=== PATIENT | male | born 1950 | race Caucasian/White ===

== ENCOUNTER → 2019-10-21 08:34 | Outpatient (BNVA) | payer MEDICARE, OTHER, SELFPAY | PROVIDERS: Family Provider Family Medicine; PCP Family Medicine; Visit Provider Urology | DX: N40.1 Benign prostatic hyperplasia with lower urinary tract symptoms (principal); N13.8 Other obstructive and reflux uropathy; R97.20 Elevated prostate specific antigen [PSA]; N52.9 Male erectile dysfunction, unspecified | CPT/HCPCS: 81001; 84153 ==

== ENCOUNTER → 2020-04-21 14:30 | Outpatient (BNVA) | payer MEDICARE, OTHER, SELFPAY | PROVIDERS: Family Provider Family Medicine; PCP Family Medicine; Visit Provider Urology | DX: R97.20 Elevated prostate specific antigen [PSA] (principal); N40.1 Benign prostatic hyperplasia with lower urinary tract symptoms; N13.8 Other obstructive and reflux uropathy | CPT/HCPCS: 81003; 84153 ==

== ENCOUNTER → 2021-01-19 14:25 | Outpatient (BNVA) | payer MEDICARE, OTHER, SELFPAY | PROVIDERS: Family Provider Family Medicine; PCP Family Medicine; Visit Provider Urology | DX: N40.1 Benign prostatic hyperplasia with lower urinary tract symptoms (principal); N13.8 Other obstructive and reflux uropathy; R97.20 Elevated prostate specific antigen [PSA] | CPT/HCPCS: 81003; 84153 ==

== ENCOUNTER 2021-05-31 15:37 | Outpatient (CLI) | payer MEDICARE, OTHER, SELFPAY ==
--- NOTE | 2021-05-31 16:00 | MR_ITS ---
WS: [id number] MRI LUMBAR SPINE NONCONTRAST TECHNIQUE: Sagittal T1, T2 and STIR imaging. Axial T1 and T2 imaging. CLINICAL INFORMATION: NEUROGENIC CLAUDICATION COMPARISON: MRI 9 2014 FINDINGS: Mild lumbar curve. No acute compression. Disc bulging L2-L3 L3-L4 and L4-L5 with endplate degenerativ e changes. Central canal stenosis at these levels is progressed compared to 2014. Degenerative disc d isease has progressed. L1-L2: No significant disc bulging. Mild facet arthropathy. Spinal canal and foramen are patent. L2-L3: Mild disc bulging with moderate central canal stenosis. Impingement on the traversing L3 nerve roots left greater than right. Moderate facet arthropathy and ligamentum flavum hypertrophy. Moderat e left greater than right foraminal narrowing. L3-L4: Mild disc bulging with osteophytic ridging. Moderate central canal stenosis. Crowding of the c auda equina nerve rootlets. Moderate facet arthropathy. Moderate bilateral foraminal narrowing. L4-L5: Mild disc bulging with osteophytic ridging. Moderate central canal stenosis. Moderate facet ar thropathy and ligamentum flavum flavum hypertrophy. Moderate to severe bilateral foraminal narrowing. L5-S1: Mild disc bulging with osteophytic ridging. Spinal canal is patent. Mild bilateral foraminal n arrowing. Moderate facet arthropathy. Partially visualized large bilateral renal cysts measuring up to 6-7 CM. MR/MR lumbar spine wo con* [id number] IMPRESSION: 1. Degenerative disc disease L2-L3 L3-L4 L4-L5 with degenerative endplate-type changes have progressed compared to 2014. 2. Moderate central canal stenosis L2-L3 L3-L4 and L4-L5. Crowding of the caud a equina nerve rootlets worse at L3-L4 and L4-L5. This is progressed compared t o 2014. 3. Multilevel moderate bony foraminal narrowing worse at left L2-3, bilateral L3-4, and bilateral L4-5. Moderate to severe at right L4-5.
== END 2021-05-31 15:38 | disposition home or self-care (01) ==
LOC: RADSHAW 15:47
PROVIDERS: PCP Family Medicine; Visit Provider Physician Assistant
DX: G95.19 Other vascular myelopathies (principal); M51.36 Other intervertebral disc degeneration, lumbar region; M48.061 Spinal stenosis, lumbar region without neurogenic claudication
CPT/HCPCS: 72148

== ENCOUNTER 2022-01-19 12:31 | Outpatient (CLI) | payer MEDICARE, OTHER, SELFPAY | END 2022-01-19 12:32 | disposition home or self-care (01) | LOC: LAB 12:31 | PROVIDERS: PCP Family Medicine; Visit Provider Urology | DX: R97.20 Elevated prostate specific antigen [PSA] (principal); N40.1 Benign prostatic hyperplasia with lower urinary tract symptoms; N13.8 Other obstructive and reflux uropathy | CPT/HCPCS: 36415; 51798; 81003; 84153; 99213 ==

== ENCOUNTER 2023-10-29 08:44 | Outpatient (CLI) | payer MEDICARE, OTHER, SELFPAY ==
[2023-10-29 09:28] VITALS: BMI 33.9
--- NOTE | 2023-10-29 09:32 | NMCV_ITS ---
NM guerrero perf SPECT r/s* [id number] Esequiel Marion Age: 73 Gender: M : 1950 Exam Date: 10/29/2023 09:32 Ordering Phys: Gricelda Mcrae Technologist: CHIDI Padilla Exam Location: [facility] Indications: CHEST PAIN, HYPERTENSION STRESS TEST Please see separate stress test report in [facility] for full findings IMAGE PROTOCOL Rest/Stress 1 Exercise Day Radiopharmaceutical Dose (mCi) Administration Site Administered by Rest: Tc-99m 10.6 IV CHIDI Luis Sestamibi Stress:Tc-99m 32.9 IV CHIDI Luis Sestamibi Rest: 29-Oct-2023 60 Discovery 630 Stress: 29-Oct-2023 30 Discovery 630 Radiopharmaceutical was injected at 85% maximum heart rate. Images obtained in supine and prone position. SPECT RESULTS Technical Quality: Excellent Raw Data Analysis: Normal Image Corrections: No attenuation or motion correction applied Summed Stress Score: 3 Summed Rest Score: 0 Summed Difference Score: 3 PERFUSION FINDINGS A small area of minimal to moderate degree disease of Evy noted in the apical lateral segment and LV apex with some reversibility. FUNCTIONAL RESULTS (calculated via Gated SPECT) Stress Image LV EF (%): 66 Stress EDV (mL):119 TID: 1.15 Stress ESV (mL):41 FUNCTIONAL FINDINGS: Segmental wall motion analysis revealing no gross wall motion abnormalities IMPRESSIONS 1. Small area of reversible defect involving the LV apex and apical lateral segments, suggesting ischemia in the distribution of the left anterior descending artery/circumflex artery. 2. Normal LV ejection fraction of 66%. 3. LV wall motion analysis revealing no gross wall motion abnormalities. 4. Normal LV volume No similar previous studies are available for comparison Dr Migel Ramos MD [facility] (Electronically Signed) Final Date: 29 Oct 2023 12:16 S
--- NOTE | 2023-10-29 09:32 | ECG_ITS ---
[facility] Test Date: 2023-10-29 Pat Name: Esequiel Marion Department: Room: Gender: Male Congressional Assistant: : 1950 Requested By: Gricelda Mccoy Order Number: [id number] Dominique MD: Migel Ramos M.D. Interpretive Statements NAME OF STUDY: LEXISCAN SESTAMIBI STRESS TEST INDICATION: Chest Pain, PROCEDURE: At the baseline, the EKG revealed sinus bradycardia with left axis deviation. Nonspecific T wave changes. The baseline heart was 55 bpm with a blood pressue of 138/81 mm of Hg Lexiscan was infused over a period of 20 seconds. A total of 0.4 milligrams of Lexiscan was infused. The stress phase was continued for a total of 5 minutes. Heart rate at the end of the stress phase was 63 bpm with a blood pressure 125/84 mm of Hg. The EKG at the peak infusion revealed no significant changes. Sestamibi was injected 20 seconds after the Lexiscan infusion. Heart rate at the end of the recovery phase was 63 bpm with a blood pressure of 130/84 mm of Hg. CONCLUSION: 1. No significant EKG changes with the LexiScan infusion 2. No LexiScan induced chest pain or cardiac arrhythmia 3. Normal blood pressure and heart rate response 4. Sestamibi/sestamibi perfusion scan pending; see separate report. Electronically Signed On 11-05-2023 18:13:20 CDT by Migel Ramos M.D. [email or web address]
[2023-10-29] MEDS: regadenoson 0.4 Mg/5 ml Syringe 0.400000000000000022 MG IVP (11:02)
[2023-10-29 11:18] VITALS: BP 125/83; PULSE 63
== END 2023-10-29 08:45 | disposition home or self-care (01) ==
PROVIDERS: PCP Physician Assistant; Visit Provider Physician Assistant
DX: R00.1 Bradycardia, unspecified (principal); I51.89 Other ill-defined heart diseases
CPT/HCPCS: 36415; 78452; 93017; 96374; A9500; J2785

== ENCOUNTER → 2023-12-18 12:41 | Outpatient (BNVA) | payer MEDICARE, OTHER, SELFPAY | PROVIDERS: PCP Physician Assistant; Referring Provider Physician Assistant; Visit Provider Internal Medicine | DX: R07.9 Chest pain, unspecified (principal); R06.02 Shortness of breath; R94.39 Abnormal result of other cardiovascular function study; Z72.9 Problem related to lifestyle, unspecified; R00.1 Bradycardia, unspecified; I44.4 Left anterior fascicular block | CPT/HCPCS: 93005; 99204 ==

== ENCOUNTER 2024-01-07 13:55 | Outpatient (CLI) | payer MEDICARE, SELFPAY ==
--- NOTE | 2024-01-07 14:00 | USCV_ITS ---
Esequiel Marion Age: 73 Gender: M : 1950 Exam Date: 01/07/2024 14:09 Ordering Phys: Keny Velasco M.D ([email or web address]) Technologist: [place] [facility] [place]: sob BP: 110 / 70 HR: 70 Rhythm: Sinus Technical Quality: Adequate MEASUREMENTS (Male / Female) Normal Values 2D ECHO LVOT Diameter 2.2 cm LV Ejection Fraction MOD 4C 57.1 % LV Ejection Fraction MOD 2C 60.0 % LV Ejection Fraction 2C AL 65.0 % LA Diameter 4.6 cm RA Systolic Volume 4C AL 43.0 ml RA Systolic Volume 4C MOD 40.9 ml LA Sys Volume AL 68.1 cm cubed LA Sys Volume Index AL 27.7 cm cubed/m squared Aorta at Sinotubular Diameter 3.1 cm IVC Diameter 1.6 cm M-MODE LA Ao Ratio MM 1.1 AV Cusp Separation MM 2.1 cm DOPPLER AV Peak Velocity 138.0 cm/s AV Area Cont Eq vti 4.3 cm squared AV Area Cont Eq pk 3.0 cm squared MV Peak Velocity 95.0 cm/s MV Area PHT 3.6 cm squared Mitral E to A Ratio 1.0 TR Peak Velocity 259.0 cm/s TR Peak Gradient 26.8 mmHg TV Peak E Velocity 69.0 cm/s Right Atrial Pressure 3.0 mmHg Pulmonary Artery Systolic Pressu 29.8 mmHg PV Peak Velocity 105.5 cm/s FINDINGS Left Ventricle Left ventricle is normal in size. LV systolic function is normal with EF of 55 to 60%. No regional wall motion abnormalities are seen Right Ventricle Normal in size and function Right Atrium Normal in size Left Atrium Normal in size Mitral Valve Structurally normal mitral valve. Mild mitral regurgitation Aortic Valve Structurally normal aortic valve. No significant stenosis. Mild aortic regurgitation. Tricuspid Valve Mild tricuspid regurgitation. Pulmonary artery systolic pressure is normal. Pulmonic Valve Not well-visualized. Pericardium Normal Aorta Ascending aorta is dilated with diameter of 4.12 cm. IVC Appears to be normal CONCLUSIONS LV systolic function is normal with EF 55 to 60%. Mild mitral regurgitation Mild aortic regurgitation Mild tricuspid regurgitation Ascending aorta is dilated with diameter of 4.12 cm No comparison studies are available. Keny Velasco MD (Electronically Signed) Final Date: 16 January 2024 17:53 S
== END 2024-01-07 13:56 | disposition home or self-care (01) ==
LOC: RAD 13:55
PROVIDERS: PCP Physician Assistant; Visit Provider Internal Medicine
DX: I08.3 Combined rheumatic disorders of mitral, aortic and tricuspid valves (principal); R06.02 Shortness of breath
CPT/HCPCS: 93306

== ENCOUNTER 2024-01-22 14:49 | Outpatient (CLI) | payer MEDICARE, SELFPAY ==
[2024-01-22 15:34] LABS: Anion Gap 14.9 (5-19); Blood Urea Nitrogen 20 mg/dL (8-23); Calcium 9.5 mg/dL (8.5-10.5); Carbon Dioxide 26 mmol/L (22-29); Chloride 101 mmol/L (98-107); Glucose 104 mg/dL (65-115); Osmolality Calculated 289 mOsm/kg (285-295); Potassium 3.9 mmol/L (3.5-5.1); Sodium 138 mmol/L (136-145)
== END 2024-01-22 14:50 | disposition home or self-care (01) ==
LOC: LAB 14:53
PROVIDERS: PCP Physician Assistant; Visit Provider Internal Medicine
DX: R06.02 Shortness of breath (principal)
CPT/HCPCS: 36415; 80048

== ENCOUNTER 2024-01-29 12:14 | Outpatient (CLI) | payer MEDICARE, OTHER, SELFPAY ==
--- NOTE | 2024-01-29 12:30 | CT_ITS ---
WS: [id number] CTA THORACIC AORTA WITH AND WITHOUT HISTORY: Ascending aorta is dilated TECHNIQUE: CT imaging of the thorax is performed with and without contrast. After noncontrast imaging is performed, CT angiogram is performed during injection of Omnipaque 350; 100 mL IV.. Sagittal and coronal reconstructions, sagittal and coronal MIP imaging is submitted. All CT scans at [facility] use at least one of these dose optimization techniques: automated exposure control; mA and/or k V adjustment per patient size (includes targeted exams where dose is matched to clinical indication); or iterative reconstruction. DLP: 887.98 mGy.cm COMPARISON: None available. Mild atherosclerotic plaque throughout the thoracic aorta. Normal sinus of Valsalva measuring 4.3 cm. Sinotubular junction 3.3 cm with normal configuration. Maximum diameter of the ascending aorta is 4. 4 x 4.3 cm. Descending aorta normal caliber at 3.2 cm near the janina. There is no dissection. No ulc erated plaque. Aorta is mildly tortuous. Pulmonary artery is normal size. Calcified granuloma 10 mm R IGHT upper lobe. No additional pulmonary mass. Mild LEFT atrial enlargement. No pericardial or pleural effusion. No RIGHT heart strain. There are no filling defects in the LEFT atrial appendage. There are small mediastinal and hilar lymph nodes whic h are not enlarged. Great vessels arise normally from the aortic arch. Proximal subclavian arteries a re normal. Chest wall is negative. Scattered hepatic cysts with the largest measuring 1.6 cm in the LEFT lobe. T here is tricuspid regurgitation into the hepatic veins. Small hiatal hernia. No adrenal mass. The ent sylvester adrenal glands are not included. Mild anterior wedging of midthoracic vertebral bodies., Probably T6 and T4. CT/CT angio chest 10096 IMPRESSION: 1. Mild aneurysmal dilatation ascending aorta, 4.4 x 4.3 cm. 2. Mild atherosclerotic plaque within the thoracic aorta but no dissection. 3. Mild LEFT atrial enlargement. 4. Tricuspid regurgitation into the hepatic veins. 5. Hepatic cysts. 6. Mild LEFT atrial enlargement.
[2024-01-29] MEDS: iohexol 350 mg/mL 500 mL Btl (per mL) IV (12:52)
== END 2024-01-29 12:15 | disposition home or self-care (01) ==
LOC: RAD 12:16
PROVIDERS: PCP Physician Assistant; Visit Provider Internal Medicine
DX: I77.810 Thoracic aortic ectasia (principal); I70.0 Atherosclerosis of aorta; I07.1 Rheumatic tricuspid insufficiency; K76.89 Other specified diseases of liver
CPT/HCPCS: 71275; Q9967

== ENCOUNTER → 2024-03-18 12:30 | Outpatient (BNVA) | payer MEDICARE, OTHER, SELFPAY | PROVIDERS: PCP Physician Assistant; Visit Provider Internal Medicine | DX: I71.20 Thoracic aortic aneurysm, without rupture, unspecified (principal); R94.39 Abnormal result of other cardiovascular function study; R06.02 Shortness of breath; F17.220 Nicotine dependence, chewing tobacco, uncomplicated | CPT/HCPCS: 99214 ==

== ENCOUNTER 2024-08-04 09:23 | Outpatient (CLI) | payer MEDICARE, OTHER, SELFPAY ==
--- NOTE | 2024-08-04 09:30 | CT_ITS ---
WS: [id number] CTA THORACIC TECHNIQUE: Contrast enhanced CTA of the thoracic aorta with coronal and sagittal reformatted images and maximum intensity projection (MIP) images. CLINICAL INFORMATION: Thoracic aneurysm COMPARISON: 01/29/2024 DLP: 930.[address] scans at [facility] use at least one of these dose optimization techniques: automated exposure control; mA and/or kV adjustment per patient size (includes targeted exams where dose is matched to clinical indication); or iterative reconstruction. FINDINGS: Stable mild aneurysmal dilatation ascending thoracic aorta measuring 4.4 x 4.2 cm. Mild aortic calcification. Normal caliber descending thoracic aorta. Proximal pulmonary arteries are normal. Stable calcified granuloma RIGHT upper lobe. Cardiomegaly. Enlargement LEFT atrium. No mediastinal or hilar lymphadenopathy. Few incidental hepatic cysts the largest measuring 1.5 cm LEFT hepatic lobe. Small esophageal hiatal hernia. Chronic anterior wedging midthoracic spine. Proximal subclavian arteries are normal. Partially visualized large RIGHT renal cyst. CT/CT angio chest 30133 IMPRESSION: 1. Stable mild aneurysmal dilatation ascending thoracic aorta measuring 4.4 x 4.2 cm in maximum dimension. 2. Stable mild LEFT atrial enlargement. 3. Mild aortic calcification. 4. Partially visualized large RIGHT renal cyst appears similar to lumbar spine MRI 2020 5. No other acute findings.
[2024-08-04 10:16] LABS: Blood Urea Nitrogen 18 mg/dL (8-23)
[2024-08-04] MEDS: iohexol 350 mg/mL 500 mL Btl (per mL) IV (10:30)
== END 2024-08-04 09:24 | disposition home or self-care (01) ==
PROVIDERS: PCP Physician Assistant; Visit Provider Internal Medicine
DX: I71.20 Thoracic aortic aneurysm, without rupture, unspecified (principal); I51.7 Cardiomegaly; I70.0 Atherosclerosis of aorta; N28.1 Cyst of kidney, acquired; J84.10 Pulmonary fibrosis, unspecified; K76.89 Other specified diseases of liver; K44.9 Diaphragmatic hernia without obstruction or gangrene; M48.54XD Collapsed vertebra, not elsewhere classified, thoracic region, subsequent encounter for fracture with routine healing
CPT/HCPCS: 71275; 82565; 84520

== ENCOUNTER → 2025-03-24 15:26 | Outpatient (BNVA) | payer MEDICARE, OTHER, SELFPAY | PROVIDERS: PCP Physician Assistant; Visit Provider Internal Medicine | DX: I71.20 Thoracic aortic aneurysm, without rupture, unspecified (principal); R94.39 Abnormal result of other cardiovascular function study | CPT/HCPCS: 99213 ==